=== PATIENT | male | born 1985 | race Caucasian/White ===

== ENCOUNTER → 2020-06-06 09:44 | Outpatient (CLI) | payer OTHER, SELFPAY | LOC: UTC.OUT 09:46 → COVID.OUT 09:59 | PROVIDERS: PCP Internal Medicine Adolescent Medicine; Visit Provider Internal Medicine Adolescent Medicine | DX: Z20.828 Contact with and (suspected) exposure to other viral communicable diseases (principal) | CPT/HCPCS: U0003 ==

== ENCOUNTER → 2020-06-07 11:19 | Outpatient (CLI) | payer OTHER, SELFPAY | PROVIDERS: Visit Provider Internal Medicine Adolescent Medicine | DX: Z03.818 Encounter for observation for suspected exposure to other biological agents ruled out (principal) | CPT/HCPCS: U0003 ==

== ENCOUNTER 2021-01-11 20:24 | Emergency (ER) | payer OTHER, SELFPAY ==
[2021-01-11 20:27] VITALS: BP 147/99; PULSE 113; RESP 14; TEMP 36.6; O2SAT 100; BMI 25.1
[2021-01-11 20:41] VITALS: BP 139/96; PULSE 111; RESP 18; TEMP 36.6
--- NOTE | 2021-01-11 20:50 | HMH.EDUTC ---
[facility] [place] Disposition Clinical Impression: Viral syndrome, Exposure to COVID-19 virus Sinusitis Qualifiers: Sinusitis location: unspecified location Chronicity: acute Recurrence: non-recurrent Qualified Code(s): J01.90 - Acute sinusitis, unspecified Disposition: Home, Self-Care Condition on Discharge: Good Instructions: DI for Sinusitis, Preventing the Spread of Coronavirus Discharge Instructions Additional Instructions: Drink plenty of fluids. Take tylenol for pain or fever. Return if you begin to have difficulty breathing. Follow up with your regular doctor. GO TO THE ER FOR ANY WORSENING SYMPTOMS Prescriptions: Benzonatate [Tessalon Perle 100mg Cap] 100 mg PO TIDP PRN #30 cap PRN Reason: Cough Transmission Status: Received by [facility] Azithromycin [Z-Eagle 250mg Tab*] 250 mg PO UD DOSE PK #6 tab Transmission Status: Received by [facility] Referrals: Kali Quick MD [Primary Care Provider] - Time of Disposition: 20:52 Medical Decision Making - Medical Records Medical records reviewed: No: I reviewed the patient's medical records. - Nikhil Inquiry Pt receiving controlled substance: No Vital Signs: 01/11/21 20:27 01/11/21 20:41 Temperature 98 F 98 F Temperature Source Tympanic Pulse Rate 111 H Pulse Rate [Right] 113 H Respiratory Rate 14 18 Blood Pressure 139/96 H Blood Pressure [Right Arm] 147/99 H Blood Pressure Mean [Right Arm] 115 Blood Pressure Source [Right Arm] Automatic Cuff Blood Pressure Position [Right Arm] Sitting 02 Sat by Pulse Oximetry 100 Oxygen Delivery Method Room Air Orders (Tests/Meds): ORDERS Category Date Time Status Covid-19 Nasal PCR ([facility]) Routine Lab 01/11/21 20:37 Received [facility] [place] HPI - General Stated complaint: covid test Time Seen by Provider: 01/11/21 20:50 Mode of Arrival: Ambulatory Source of Information: Patient Limitations: No Limitations Description of Symptoms (Recalled from Triage Doc. by RN): low grade fever, loss of taste and smell, nasal drainage, cough and sore throat. HEENT Symptoms (Recalled from RN notes): Yes (sore throat and loss of taste/smell) Resp Symptoms (Recalled from RN notes): Yes (cough) Skin Symptoms (Recalled from RN notes): No MS Symptoms (Recalled from RN notes): No Functional Status (Recalled from RN notes): na - History of Present Illness Provider Complaint: He reports that for the past 2 days he has had a cough, sinus congestion, sore throat and body aches. He denies any known exposure to covid. - Related Data Previous Rx's Medication Instructions Recorded Azithromycin [Z-Eagle 250mg Tab*] 250 mg PO UD DOSE PK #6 tab 01/11/21 Benzonatate [Tessalon Perle 100mg 100 mg PO TIDP PRN #30 cap 01/11/21 Cap] Allergies Allergy/AdvReac Type Severity Reaction Status Date / Time Penicillins [PENICILLINS] Allergy Unknown Verified 01/11/21 20:36 - Worker's Comp Is this a Worker's Comp case?: No [facility] History - Hepatitis A Screen Drug use history?: No High risk sexual behaviors?: No History of sexually transmitted infection?: No Currently employed?: No Childcare worker?: No Do you have indoor plumbing?: Yes Do you have electricity?: Yes Attestation statement:: This patient has been screened for Hepatitis A risk factors. I have reviewed the patient's past medical history: Yes - Social History Smoking Status: Never smoker Alcohol Intake: never Occupational Status: employed ROS Obtained: Yes All systems reviewed & no additional complaints - Constitutional Constitutional: Reports system reviewed and no additional complaints, except as docu - Eyes Eyes: Reports system reviewed and no additional complaints, except as docu - ENT Ears, Nose, Mouth, and Throat: Reports system reviewed and no additional complaints, except as docu - Cardiovascular Cardiovascular: Reports system reviewed and no additional complaints, except as docu - Respiratory Respiratory
== END 2021-01-11 20:57 | disposition home or self-care (01) ==
PROVIDERS: Emergency Provider Nurse Practitioner Family; PCP Internal Medicine Adolescent Medicine
DX: Z20.822 Contact with and (suspected) exposure to COVID-19 (principal); B34.9 Viral infection, unspecified; J01.90 Acute sinusitis, unspecified; Z88.0 Allergy status to penicillin
CPT/HCPCS: 99202; G0463; U0003

== ENCOUNTER → 2021-04-22 15:59 | Outpatient (CLI) | payer OTHER, SELFPAY ==
[2021-04-22 16:02] LABS: Adenovirus F 40/41, stool Not Detected (NotDetected); Astrovirus Not Detected (NotDetected); Clostridium Difficile A/B, PCR Not Detected (NotDetected); Cryptosporidium Not Detected (NotDetected); Cyclospora Cayetanesis Not Detected (NotDetected); Entamoeba histolytica Not Detected (NotDetected); Enteroaggregative E coli Not Detected (NotDetected); Enteropathogenic E coli Not Detected (NotDetected); Enterotoxigenic E coli Not Detected (NotDetected); Giardia lamblia Not Detected (NotDetected); Norovirus Not Detected (NotDetected); Plesimonas Shigalloides, PCR Not Detected (NotDetected); Rotavirus A Not Detected (NotDetected); Salmonella, PCR Not Detected (NotDetected); Sapovirus Not Detected (NotDetected); Shiga-like toxin E coli Not Detected (NotDetected); Shigella Enterovasive E coli Not Detected (NotDetected); Vibrio Cholerae Not Detected (NotDetected); Vibrio, PCR Not Detected (NotDetected); Yersinia Entercolitica, PCR Not Detected (NotDetected)
[2021-04-23 09:07] LABS: Campylobacter Detected (NotDetected)
== END ==
PROVIDERS: Visit Provider Internal Medicine Adolescent Medicine
DX: R19.7 Diarrhea, unspecified (principal); A04.5 Campylobacter enteritis
CPT/HCPCS: 87507

== ENCOUNTER → 2021-07-04 12:20 | Outpatient (CLI) | payer OTHER, SELFPAY ==
--- NOTE | 2021-07-04 | CA_ITS ---
APPROVED REPORT Exam: Exercise Treadmill Technologist: Emerita Lechuga Ht: 5 ft 10 in Wt: 175 lbs BSA: 1.97 m2 HR: 78 bpm BP: 135/87 mmHg Indications: Abnormal EKG Stress Test Details Test: Bao HR Resting HR: 89 bpm Max Heart Rate (APMHR): 182.966563 bpm Max HR Achieved: 159 bpm Target HR (85% APMHR): 154.024235 bpm % of APMHR: 87.36 Recovery HR: 106 bpm BP Resting BP: 135.0/87.0 mmHg Max BP: 172.0/80.0 mmHg Recovery BP: 129.0/91.0 mmHg ECG Resting ECG: Normal sinus rhythm Clinical Exercise duration: 09:00 min Highest Stage Achieved: Exercise capacity: 10.1 METs Stress ECG Conclusion Patient exercised 9:00 on Bao Protocol. Test stopped due to leg fatigue, shortness of air. Symptoms: Post test (in recovery) chest pressure Arrhythmias/Ectopy: None ST-T Changes: Normal ST response to exercise. Conclusion: Normal stress ECGs with chest pain in recovery. Myoview images reported separately. Test Summary REST . . . . . . . Sitting REST . . . . . . . Standing REST 03:20 0.0 0.0 89 . 135/ 87 . . Stage 1 01:00 10.0 1.7 119 . . . . Stage 1 02:00 10.0 1.7 122 . . . . Stage 1 03:00 10.0 1.7 123 . 154/ 86 . . Stage 2 01:00 12.0 2.5 133 . . . . Stage 2 02:00 12.0 2.5 136 . . . . Stage 2 03:00 12.0 2.5 136 . 172/ 80 . . Stage 3 01:00 14.0 3.4 149 . . . . Stage 3 . . . . . . . Myoview Injected Stage 3 02:00 14.0 3.4 155 . . . . Stage 3 03:00 14.0 3.4 158 . . . Stop exercise at 09:00 RECOVERY 01:00 0.0 0.0 140 . 140/ 84 . . RECOVERY 02:00 0.0 0.0 123 . 140/ 84 . . RECOVERY 03:00 0.0 0.0 112 . 146/ 85 . . RECOVERY . . . . . . . chest pressure RECOVERY 04:00 0.0 0.0 114 . 146/ 85 . . RECOVERY 05:00 0.0 0.0 106 . 129/ 91 . . RECOVERY 05:38 0.0 0.0 105 . 129/ 91 . . Electronically signed by : Gibson Do MD 07/04/2021 15:59:11
--- NOTE | 2021-07-04 12:25 | NM_ITS ---
APPROVED REPORT Exam: Nuclear Stress Test Indication: TOB USE, FM HX., C.P., SOB, ABN EKG Patient Location: Outpatient NH Tech:HIEU Junior RT(R)(N) Ht: 5 ft 10 in Wt: 175 lbs HR: 78 bpm BP: 135/87 mmHg BSA: 1.97 m2 BMI: 25.1 History: TOB USE, FM HX., C.P., SOB, ABN EKG Procedure: Patient exercised on Bao protocol 9:00 minutes and sec, resting heart rate 78 bpm, resting blood pressure 135/87 mmHg, with exercise maximum heart rate achived was 159 bpm which is 87 % of the maximum predicted heart rate and blood pressure was 172/80 mmHg. Patient denied any complaint of chest pain. Patient has Good exercise capacity, achieved 10.1 METs of workload on treadmill, the blood pressure response to exercise was Adequate. Electrocardiogram Resting electrocardiogram shows sinus rhythm, with exercise there is less than 1.[address] segment depression noted from the baseline EKG. The EKG portion of the exercise Myoview is negative for ischemia. Cardiac Stress and Resting SPECT Images: Cardiac Stress and Resting SPECT images were obtained using technetium 99m Myoview 32.9 mCi stress and 10.42 mCi at rest. Gated SPECT for analysis of segmental wall motion and calculation of the ejection fraction also done. Prone images were also obtained. Cardiac stress and rest SPECT images show uniform myocardial activity without segmental perfusion abnormality, computer derived ejection fraction is 53% with no regional wall motion abnormality, right ventricle is normal size and contractility. Conclusion: 1. The EKG portion of the exercise Myoview is negative for ischemia, patient has good exercise capacity achieved 10.1 METs of workload on treadmill, the blood pressure response to exercise was adequate, there was no exercise-induced chest discomfort. 2. No scintigraphic evidence of reversible ischemia seen, computer derived ejection fraction is 53% with no regional wall motion abnormality, right ventricle is normal size and contractility. 3. Normal exercise Myoview study. Electronically signed by : Gibson Do MD 07/04/2021 16:15:32
== END ==
PROVIDERS: PCP Internal Medicine Adolescent Medicine; Visit Provider Internal Medicine Adolescent Medicine
DX: I20.9 Angina pectoris, unspecified (principal); R94.31 Abnormal electrocardiogram [ECG] [EKG]
CPT/HCPCS: 78452; 93017; A9502

== ENCOUNTER → 2021-07-08 10:56 | Outpatient (CLI) | payer OTHER, SELFPAY ==
[2021-07-08 12:14] LABS: Coronavirus 19 IgG Antibody Negative (Negative); Coronavirus 19 IgM Antibody Negative (Negative)
== END ==
PROVIDERS: Visit Provider Internal Medicine Adolescent Medicine
DX: Z20.822 Contact with and (suspected) exposure to COVID-19 (principal)
CPT/HCPCS: 86328

== ENCOUNTER 2021-10-12 13:18 | Emergency (ER) | payer OTHER, SELFPAY ==
[2021-10-12 13:40] VITALS: BP 146/89; PULSE 107; RESP 19; TEMP 37; O2SAT 98; BMI 25.1
[2021-10-12 14:03] LABS: UTC Influenza A Antigen Negative (Negative)
[2021-10-12 14:04] LABS: UTC Influenza B Antigen Negative (Negative)
--- NOTE | 2021-10-12 14:16 | HMH.EDUTC ---
[facility] [place] Disposition Clinical Impression: Exposure to COVID-19 virus Disposition: Home, Self-Care Condition on Discharge: Good Instructions: Preventing the Spread of Coronavirus Discharge Instructions, DI for COVID-19 (Suspected or Confirmed ) Additional Instructions: covid swab was sent to lab, call later today for results. self isolate until test results are known to be negative No sign of a bacterial infection. Likely viral. Viruses can take 7-14 days to run their course. Nasal saline and bulb syringe or nose Brandy to remove nasal drainage to help with nasal congestion. Hard to eat, drink, sleep with nasal congestion so important to keep this cleaned out. Monitor temp. Tylenol or Motrin as needed for pain or fever Encourage fluids, water, Gatorade, Powerade, Pedialyte if infant/toddler/child Warm salt water gargles Warm fluids Sore throat lozenges Sleep elevated Humidifier/vaporizer Follow-up immediately for new or worsening symptoms or no noticeable improvement over the next 48-72 hours. Referrals: Kali Quick MD [Primary Care Provider] - Time of Disposition: 14:22 Medical Decision Making - Nikhil Inquiry Pt receiving controlled substance: No Vital Signs: 10/12/21 13:40 Temperature 98.6 F Temperature Source Oral Pulse Rate [Right Brachial] 107 H Respiratory Rate 19 Blood Pressure [Right Arm] 146/89 H Blood Pressure Mean [Right Arm] 108 Blood Pressure Source [Right Arm] Automatic Cuff Blood Pressure Position [Right Arm] Sitting 02 Sat by Pulse Oximetry 98 Oxygen Delivery Method Room Air - Lab Data Lab Results 10/12/21 13:43: Influenza Type A Ag Negative, Influenza Type B Ag Negative Orders (Tests/Meds): ORDERS Category Date Time Status Covid-19 Nasal PCR ([facility]) Routine Lab 10/12/21 13:43 Ordered [facility] [place] HPI - General Chief complaint: [facility] Stated complaint: cough, congestion, body aches, runny nose Time Seen by Provider: 10/12/21 14:16 Mode of Arrival: Ambulatory Source of Information: Patient Limitations: No Limitations Description of Symptoms (Recalled from Triage Doc. by RN): PATIENT C/O BODY ACHES AND CHILLS SINCE YESTERDAY. RECENTLY EXPOSED TO COVID AND FLU HEENT Symptoms (Recalled from RN notes): No Resp Symptoms (Recalled from RN notes): No Skin Symptoms (Recalled from RN notes): No MS Symptoms (Recalled from RN notes): No Functional Status (Recalled from RN notes): WNL - History of Present Illness Provider Complaint: 36 yr old female presents for chills and body aches. pt recently exposed to covid and flu, - Related Data Previous Rx's Medication Instructions Recorded Azithromycin [Z-Eagle 250mg Tab*] 250 mg PO UD DOSE PK #6 tab 01/11/21 Benzonatate [Tessalon Perle 100mg 100 mg PO TIDP PRN #30 cap 01/11/21 Cap] Allergies Allergy/AdvReac Type Severity Reaction Status Date / Time Penicillins [PENICILLINS] Allergy Unknown Verified 01/11/21 20:36 - Worker's Comp Is this a Worker's Comp case?: No [facility] History - Hepatitis A Screen Drug use history?: No High risk sexual behaviors?: No History of sexually transmitted infection?: No Currently employed?: No Childcare worker?: No Do you have indoor plumbing?: Yes Do you have electricity?: Yes Attestation statement:: This patient has been screened for Hepatitis A risk factors. I have reviewed the patient's past medical history: Yes - Social History Smoking Status: Never smoker Alcohol Intake: never Occupational Status: employed ROS Obtained: Yes Systems reviewed as appropriate & no additional complaints - Constitutional Constitutional: Reports system reviewed and no additional complaints, except as docu, Reports body ache, Reports chills, Denies fever(s) - Eyes Eyes: Reports system reviewed and no additional complaints, except as docu, Denies blurry vision - ENT Ears, Nose, Mouth, and Throat: Reports system reviewed and no additional complaints, except as docu, Denies blee
[2021-10-12 14:32] VITALS: BP 146/89; PULSE 107; RESP 19; TEMP 37; O2SAT 98
== END 2021-10-12 14:35 | disposition home or self-care (01) ==
PROVIDERS: Emergency Provider Nurse Practitioner Family; PCP Internal Medicine Adolescent Medicine
DX: U07.1 COVID-19 (principal); R05.1 Acute cough
CPT/HCPCS: 87804; 99202; C9803; G0463; U0003; U0005

== ENCOUNTER → 2022-01-27 15:00 | Outpatient (CLI) | payer OTHER, SELFPAY ==
--- NOTE | 2022-01-27 15:09 | XR_ITS ---
FINAL REPORT CLINICAL HISTORY: HEMOPTYSIS, cough, hx smoker COMPARISON: March 19, 2016 FINDINGS: Two views of the chest were obtained. The heart size and pulmonary vascularity are within normal limits. The mediastinum is normal. No acute pulmonary abnormality is identified. There is no pneumothorax. The bony thorax is intact. IMPRESSION: No active cardiopulmonary disease. Reviewed, Interpreted and Dictated by Mik Lakhani III, MD Transcribed by Hilton Marquez Authenticated by Mik Lakhani III, MD on 01/27/2022 04:02:01 PM [facility]
== END ==
PROVIDERS: PCP Internal Medicine Adolescent Medicine; Visit Provider Internal Medicine Adolescent Medicine
DX: R04.2 Hemoptysis (principal)
CPT/HCPCS: 71046

== ENCOUNTER → 2023-02-23 16:16 | Outpatient (CLI) | payer OTHER, SELFPAY ==
--- NOTE | 2023-02-23 16:22 | XR_ITS ---
PROCEDURE INFORMATION: Exam: XR Right Wrist Exam date and time: 02/23/2023 4:37 PM Age: 37 years old Clinical indication: Pain; Wrist; Right; Patient HX: Fall TECHNIQUE: Imaging protocol: Radiologic exam of the right wrist. Views: 3 or more views. COMPARISON: No relevant prior studies available. FINDINGS: Bones/joints: Normal. No fracture or dislocation identified. Soft tissues: Normal. IMPRESSION: No acute findings.
--- NOTE | 2023-02-23 16:23 | XR_ITS ---
PROCEDURE INFORMATION: Exam: XR Right Forearm Exam date and time: 02/23/2023 4:37 PM Age: 37 years old Clinical indication: Pain; Lower or forearm; Right; Patient HX: Fall TECHNIQUE: Imaging protocol: Radiologic exam of the right forearm. Views: 2 views. COMPARISON: No relevant prior studies available. FINDINGS: Bones/joints: Normal. No fracture or dislocation identified. Soft tissues: Normal. IMPRESSION: No acute findings.
== END ==
PROVIDERS: PCP Internal Medicine Adolescent Medicine; Visit Provider Nurse Practitioner Family
DX: M25.531 Pain in right wrist (principal); M79.631 Pain in right forearm
CPT/HCPCS: 73090; 73110

== ENCOUNTER 2024-01-07 13:45 | Emergency (ER) | payer OTHER, SELFPAY ==
[2024-01-07 13:47] VITALS: BP 159/108; PULSE 103; RESP 20; TEMP 36.8; O2SAT 100; BMI 25.0
[2024-01-07 14:00] VITALS: BP 144/101; PULSE 105; O2SAT 100
--- NOTE | 2024-01-07 14:20 | ED_ITS ---
<Statement entered by Umu Beltran MD - 01/07/24 15:25> I was consulted by the ADRIANO, and we discussed the complexity of the problems being addressed. I approved the treatment and management plan for this patient's care in the emergency department, thus performing a substantive portion of the medical decision making. Umu Beltran MD, DARLIN, FACEP Discharge Plan Disposition Patient Disposition: Home, Self-Care Condition: Good Prescriptions Prescriptions: New cephalexin 500 mg capsule 500 mg PO BID 7 Days Qty: 14 0RF No Action losartan 50 mg tablet 50 mg PO diclofenac sodium 75 mg tablet,delayed release (DR/EC) PO Referrals Follow up/Referrals: Kali Quick MD [Primary Care Provider] - See instructions Activity Restrictions/Add. Instructions Additional Instructions/Restrictions: Keep sutures covered with a dry dressing. Keep bandage in place for 24 hours. Then may wash as normal with soap and water. Do not cover with an occlusive dressing. Return to the ER for redness increasing pain drainage as needed. Suture removal in 7 to 10 days Clinical Impressions Clinical Impression: Laceration Stand Alone Forms Stand Alone Forms: Work/School Release Instructions Patient Instructions: DI for Laceration Repair Discharge ED Provider: Umu Beltran General Adult HPI General Chief complaint: Wound/Laceration Stated complaint: AO@[id number], lac on Lt arm Time Seen by Provider: 01/07/24 14:07 Mode of Arrival: Family Vehicle Source of Information: Patient and Spouse Limitations: No Limitations Description of Symptoms (Recalled from ER Triage Doc. by RN): Pt presents to ER after a lens edge grinder machine kicked back and cut the side of his left wrist. States he has held pressure to the wound with 2 sets of paper-towel in route. Bleeding controlled at this time. Pt reports numbness to left little finger. 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 He is able to move fingers wnl, however he feels not completely numb. He is not UTD on Tetanus vaccine. This occured at work just prior to arrival. History of Present Illness HPI narrative: Patient was using a lens edge grinder machine to grind clean metal and it slipped and striking his ulnar aspect of his left distal extremity at the wrist but proximal to the joint. 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 Related Data Home Medications Medication Instructions Recorded Confirmed diclofenac sodium 75 mg mg PO 03/13/23 04/10/23 tablet,delayed release losartan 50 mg tablet 50 mg PO 03/13/23 04/10/23 Previous Rx's Medication Instructions Recorded cephalexin 500 mg capsule 500 mg PO BID 7 days #14 caps 01/07/24 Allergies Allergy/AdvReac Type Severity Reaction Status Date / Time Penicillins [PENICILLINS] Allergy Unknown Verified 04/10/23 10:[address] [facility] Disclaimer: The information contained in this section may have been updated after the patient was seen, as this information can be updated by other users. Medical History Hypertension Social History Smoking Status: Former smoker alcohol intake: never current occupational status: employed Travel in the last 8 weeks: None ROS Obtained: Yes Systems reviewed as appropriate & no additional complaints except as documented Physical Exam General General appearance: alert and in no apparent distress Head Head exam: atraumatic and normal inspection Eye Eye exam: Present normal appearance, PERRL and EOMI ENT ENT exam: Present normal exam, normal oropharynx and mucous membranes moist Neck Neck exam: Present normal inspection and full ROM Chest Chest inspection: Present normal inspection and symmetric chest wall rise Respiratory Respiratory exam: Present normal lung sounds bilaterally and accessory muscle use Cardiovascular Cardiovascular exam: Present regular rate and normal rhythm Abdominal Exam Abdominal exam: Present soft; Absent tenderness Neurological Exam Neurological exam: Present alert and oriented X3 Psychiatric Psychiatric exam: Present normal affect Other Other exam information: Patient has suffered a 4-1/2 cm laceration in a semicircular fashion to the ulnar aspect of his left distal forearm proximal to the wrist joint. The wound appears to be clean although it has some superficial metal debris at the wound edges. Patient is neurovascularly intact distally from the wound and has no motor deficits or strength deficits. Flexion extension and abduction adduction testing is intact. Patient does have loss of sensation of the superficial skin on the ulnar aspect of the fifth finger but no other deficits found. Prior to wound closure but after adequate superficial anesthesia wound explored and appears to remain superficial with no bony fragments or debris deep into the joint. Brain and skin exams pink warm and dry Medical Decision Making Medical Records Medical records reviewed: Yes I reviewed the patient's medical records. Nikhil Inquiry Pt receiving controlled substance: No Vital Signs: 01/07/24 13:47 01/07/24 14:00 Temperature 98.3 F Temperature Source Oral Pulse Rate 105 H Pulse Rate [Right] 103 H Respiratory Rate 20 Blood Pressure 144/101 H Blood Pressure [Right Arm] 159/108 H Blood Pressure Mean [Right Arm] 125 Blood Pressure Source [Right Arm] Automatic Cuff 02 Sat by Pulse Oximetry 100 100 Oxygen Delivery Method Room Air Lab Data Lab results reviewed: Yes I reviewed the patient's lab results. Orders (Tests/Meds): ED MEDICATIONS Discontinued Medications Generic Name Dose Route Start Last Admin Trade Name Francisco J PRN Reason Stop Dose Admin Lidocaine/Epinephrine 20 ml 01/07/24 14:22 01/07/24 14:46 Lidocaine 1% W/Epi 1:100,000 20ml Vial SQ 01/07/24 14:23 1 dose ONCE ONE Administration Tetanus/Reduced Diphtheria/Acell Pertussis 0.5 ml 01/07/24 14:22 Tet/Diphth/Pert-Adult 0.5ml Syringe IM 01/07/24 14:23 .ONCE ONE ORDERS Category Date Time Status Wrist XR left minimum 3 views [XR wrist LT min 3V] Stat Exams 01/07/24 14:29 Ordered Medical Decision Narrative: In summary patient is a 38-year-old male who presents to the emergency department for evaluation of laceration at the left wrist. Patient is hemodynamically stable upon arrival, and afebrile. Physical exam shows a 4-1/2 cm laceration to the ulnar aspect of the left wrist proximal to the joint. Differential diagnosis includes superficial laceration versus open fracture versus tendinous injury versus vascular injury versus neurologic injury. Initial workup will be conducted with plain film x-ray. Initial interventions include Tylenol Toradol Initial workup reviewed by me [hematologic labs are remarkable for... Imaging remarkable for... Urinalysis remarkable for]. Upon repeat evaluation patient is hemostatic and is appropriate for discharge at this time with wound care instructions given both verbally and written. Patient given a prescription for Keflex for 5 days. Patient given instructions to return the emergency department for increasing redness swelling or drainage. 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 Again patient and verbalized understanding and agreement. Procedures Laceration Laceration 1: Site: upper extremity Side (If applicable): left Size (cm): 4.5 Description: other (Semicircular) Depth: simple, single layer Local Anesthetic: lidocaine 1% and with epi Amount of anesthesia used (mL): 20 Pre-repair: wound explored, irrigated extensively and deep structures intact Skin layer closed with: nylon Size (cm): 3-0 Number of sutures: 7 Technique: simple, interrupted Critical Care Critical Care Time Critical Care Time: No
--- NOTE | 2024-01-07 14:29 | XR_ITS ---
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 There is no acute fracture or dislocation. The joint spaces appear normal. There is a cyst in the lunate. No soft tissue abnormality is identified. IMPRESSION: No acute process. Reviewed, Interpreted and Dictated by Mik Lakhani III, MD Transcribed by Ramonita Minaya Authenticated and . [facility]
[2024-01-07] MEDS: LIDOCAINE 1% W/EPI 1:100,000 20ML VIAL 20 ML SQ (14:46)
--- NOTE | 2024-01-07 14:50 | PC.NURSE ---
DON AT [facility] DOING STITCHES
[2024-01-07] MEDS: TET/DIPHTH/PERT-ADULT 0.5ML SYRINGE 0.5 ML IM (15:29)
[2024-01-07 15:41] VITALS: BP 144/100; PULSE 105; RESP 15; TEMP 36.7
== END 2024-01-07 15:42 | disposition home or self-care (01) ==
PROVIDERS: Emergency Provider Student in an Organized Health Care Education/Training Program; PCP Internal Medicine Adolescent Medicine
DX: S51.812A Laceration without foreign body of left forearm, initial encounter (principal); W31.1XXA Contact with metalworking machines, initial encounter; I10 Essential (primary) hypertension; Z87.891 Personal history of nicotine dependence; Z23 Encounter for immunization
CPT/HCPCS: 12002; 73110; 90471; 90715; 99283

== ENCOUNTER 2024-04-08 06:23 | Day surgery (SDC) | payer BC, SELFPAY ==
[2024-04-08 06:59] VITALS: BMI 21.5
[2024-04-08 07:03] VITALS: BP 128/89; PULSE 66; RESP 18; TEMP 36.1; O2SAT 100
[2024-04-08] MEDS: LACTATED RINGERS 1000ML 1,000 ML 25 ML IV (07:12)
[2024-04-08 07:20] VITALS: O2SAT 99
--- NOTE | 2024-04-08 07:41 | P.PNANES_ITS ---
[facility] Disclaimer: The information contained in this section may have been updated after the patient was seen, as this information can be updated by other users. Medical History Hypertension Family History (Updated 04/08/24 @ 06:57 by Ruth Ann Mesa RN) Other No significant family history Social History (Updated 04/08/24 @ 06:58 by Ruth Ann Mesa RN) Smoking Status: Former smoker alcohol intake: never substance use type: denies use current occupational status: employed Travel in the last 8 weeks: None caffeine: Yes [facility] Anesthesia Checklist Patient Identification Patient Identification: Arm Band Structural Data Admitted From: Home Planned Operative Procedure/s: colonoscopy Consent for Planned Operative Procedure(s) Verified: Yes Verified Documents: Surgical Consent and History and Physical NPO Status Verified Time NPO: 00:00 Additional verifications Anesthesia Reactions: No Airway Assessment Mallampati Score:: Class I C-Spine Mobility Assessed: Yes TMJ Mobility Assessed: Yes Dentition: Good Dentition Neurological Assessment Level of Consciousness: Awake, Alert and Appropriate Anesthesia Plan Anesthesia Risk discussed: Yes Anesthesia Plan: Verified ASA Class: II Anesthesia Type: MAC
--- NOTE | 2024-04-08 07:46 | P.PCN_ITS ---
Procedure: Date: 04/08/24 Patient Date of :: 1985 Procedure Performed:: Total colonoscopy to terminal ileum with polypectomy by biopsy forceps Indications:: Patient is a 39-year-old male who presents for initial screening colonoscopy. He does have family history of colon cancer in his paternal grandfather and possibly relative on mother side of the family. . Performing Provider:: Mik Blackwell MD Referring Provider:: Kali Quick MD Sedation:: MAC sedation Procedure:: Patient history was obtained and appropriate physical examination was performed. Patient's medications and allergies were reviewed. Informed consent was obtained after explaining the benefits, alternatives, and risks of the procedure including, but not limited to, bleeding, perforation, missed lesions, and adverse reaction to anesthesia medications. Patient was transported to endoscopy procedure room. Patient was connected to monitoring devices. Throughout the procedure the patient's blood pressure, pulse, and oxygen saturations were monitored continuously. Patient identification and planned procedure were verified by the staff. Patient was positioned in lateral decubitus position. Digital anorectal exam was performed. Variable stiffness Olympus colonoscope was inserted and advanced under direct visualization to the cecum. Adequacy of the colonic preparation was noted. The colonoscope was advanced a short distance into the terminal ileum. The colonoscope was then slowly withdrawn while carefully examining the color, texture, anatomy, and integrity of the mucosoa circumferentially. Within the rectum retroflexion was performed. Colonoscope was then withdrawn. Impression: Colonic preparation was excellent. There was good visualization. In the descending colon there was some patchy erythema consistent with mild colitis and a couple of biopsies were obtained using cold biopsy forceps. At the rectosigmoid region there was a hyperplastic appearing polyp removed with cold biopsy forceps. Retroflexion revealed no evidence of any pathologic internal hemorrhoids. . Findings:: Nonspecific inflammation of descending colon consistent with mild colitis Hyperplastic appearing rectosigmoid polyp . Recommendations:: Follow-up colonoscopy pending pathology. Likely 4 or 5 years given family his tory. . Complications:: None immediately apparent Estimated blood obtained (mL): 2 Colonoscopy Component Colonoscopy Component Was a colonoscopy performed during today's procedure?: Yes Recommended follow up colonoscopy of at least 10 years?: No If no, follow up colonoscopy recommended in ___ years?: 4-5 Reason for not recommending >/= 10 yr follow-up interval?: See above
[2024-04-08 07:59] VITALS: BP 104/57; PULSE 78; RESP 16; O2SAT 97
[2024-04-08 08:10] VITALS: BP 128/71; PULSE 81; RESP 18; O2SAT 98
[2024-04-08 08:17] VITALS: BP 117/75; PULSE 84; RESP 16; O2SAT 99
== END 2024-04-08 08:22 | disposition home or self-care (01) ==
PROVIDERS: PCP Nurse Practitioner Family; Visit Provider Surgery
PROC: 0DJD8ZZ Inspection of Lower Intestinal Tract, Via Natural or Artificial Opening Endoscopic (ICD-10-PCS; CPT 45380; principal; 2024-04-08 07:30)
DX: Z12.11 Encounter for screening for malignant neoplasm of colon (principal); Z80.0 Family history of malignant neoplasm of digestive organs; K63.5 Polyp of colon; K52.9 Noninfective gastroenteritis and colitis, unspecified
CPT/HCPCS: 45380; J2704; J7120

== ENCOUNTER 2025-06-30 21:24 | Emergency (ER) | payer BC, OTHER, SELFPAY ==
--- OUTSIDE RECORDS SUMMARY | 2025-06-30 21:54 | XMS_ITS | Clinical Summary ---
Author Organization [facility] Address [address] [place] [address] Care Team Providers Care Embedded Case Manager Name Role Phone Kali Quick MD Primary Care Provider + [phone] Allergies Active Allergy Reactions Criticality Noted Date Comments Penicillins 07/27/2017 Medications levocetirizine (XYZAL) 5 MG tablet Take 5 mg by mouth Every Evening. Active fluticasone (FLONASE) 50 MCG/ACT nasal spray 2 sprays into each nostril Daily. Active oxyCODONE-aceta minophen (PERCOCET) 10-325 MG per tablet Take 1 tablet by mouth Every 6 (Six) Hours As Needed for Moderate Pain . Active nabumetone (RELAFEN) 750 MG tablet Take 1 tablet by mouth 2 (Two) Times a Day. 60 tablet 07/28/2017 Active Active Problems Problem Noted Date Diagnosed Date Degenerative disc disease, lumbar 07/28/2017 Overview (07/28/2017): L4/5, L5/S1 Bulge of lumbar disc without myelopathy 07/28/20 17 Overview (07/28/2017): L4/5, L5/S1 Family History Medical History Relation Name Comments Heart disease Father Relation Name Status Comments Father Social History Tobacco Use Types Packs/Day Years Used Date Smoking Tobacco: Former Cigarettes Smokeless Tobacco: Current Snuff Alcohol Use Standard Drinks/Week Comments No 0 (1 standard drink = 0.6 oz pur e alcohol) Abuse Screen Answer Date Recorded Unsafe at Home or Work/School Not on file Feels Threatened by Someone? Not on file 09/2023 Does Anyone Keep You from Co ntacting Others or Doint Things Outside the Home? Not on file 08/12/2023 Physical Sign of Abuse Present Not on file 1 Housing Stability Answer Date Recorded Current Living Arrangements Not on file 08/02 Potentially Unsafe Housing Conditions Not on laureen e 08/12/2023 Family and Community Support Answer Stephane e Recorded Help with Day-to-Day Activities Not on file 08/12/2023 Lonely or Isolated Not on file 08/12/2023 Employment Answer Date Recorded Do you want help finding or keeping work or a arias b? Not on file 08/12/2023 Disabilities Answer Date Recorded Concentrating, Remembering, or Making Decisions Difficulty Not on file 08/12/2023 Doing Errands Independently Difficulty Not on fi le 08/12/2023 Education Answer Date Recorded Help with school or training? Not on file Preferred Language Not on file 08/12/2023 Sex and Gender Information Value Date Recorded Sex Assigned at Not on file Legal Sex Male 12:48 PM EDT Gender Identity Not on file Sexual Orientation Not on file Last Filed Vital Signs Vital Sign Reading Time Taken Comments Blood Pressure 130/82 07/28/2017 11:07 AM EDT Pulse - - Temperature 36.8 C (98.2 F) 07/28/2017 11:07 AM EDT Respiratory Rate - - Oxygen Saturation - - Inhaled Oxygen Concentration - - Weight 78 kg (172 lb) 07/28/2017 11:07 AM EDT Height 177.8 cm (5' 10 ) 07/28/2017 11:07 AM EDT Body Mass Index 24.68 07/28/2017 11:07 AM EDT Plan of Treatment Health Maintenance Due Date Last Done Comments TDAP/TD VACCINES (1 - Tdap) 2002 ANNUAL PHYSICAL 07/27/2017 HEPATITIS C SCREENING 07/27/2017 COVID-19 Vaccine (2023-2 5 season) 2024 INFLUENZA VACCINE 08/02/2025 Pneumococcal Vaccine 0-49 Aged Out No longer eligible based on patient's age to complete this topic Insurance [facility] Care Teams Embedded Case Manager Relationship Specialty Start Date End Date Kali Quick MD [address] [facility] [address] [place] [id number] PCP - General Adolescent Medicine 07/24/17
[2025-06-30 21:55] VITALS: BP 124/97; PULSE 99; RESP 20; TEMP 37.2; O2SAT 98; BMI 25.8
[2025-06-30 22:02] VITALS: BP 129/86; PULSE 92; RESP 16; TEMP 36.8; O2SAT 98
--- NOTE | 2025-06-30 22:04 | XR_ITS ---
PROCEDURE INFORMATION: Exam: XR Right Foot Exam date and time: 06/30/2025 10:21 PM Age: 40 years old Clinical indication: Injury or trauma; Other: Injury with cow; Blunt trauma; Foot; Right TECHNIQUE: Imaging protocol: Radiologic exam of the right foot. Views: 3 or more views. COMPARISON: CR XR ANKLE RT MIN 3V 06/30/2025 10:21 PM FINDINGS: Bones/joints: Normal. No acute fracture identified. Soft tissues: Normal. IMPRESSION: No acute findings.
--- NOTE | 2025-06-30 22:04 | XR_ITS ---
PROCEDURE INFORMATION: Exam: XR Right Ankle Exam date and time: 06/30/2025 10:21 PM Age: 40 years old Clinical indication: Injury or trauma; Other: Injury with cow; Blunt trauma; Ankle; Right TECHNIQUE: Imaging protocol: Radiologic exam of the right ankle. Views: 3 or more views. COMPARISON: CR XR FOOT RT MIN 3V 06/30/2025 10:21 PM FINDINGS: Bones/joints: Normal. No acute fracture identified. Soft tissues: Normal. IMPRESSION: No acute findings.
--- NOTE | 2025-06-30 23:00 | HMH.EDGENADL ---
Discharge Plan Disposition Patient Disposition: Home, Self-Care Prescriptions Prescriptions: New oxycodone 5 mg tablet 5 mg PO Q8H PRN (Reason: pain) Qty: 12 0RF No Action losartan 50 mg tablet 50 mg PO DAILY Referrals Follow up/Referrals: Francisco López DO [Staff Physician, Orthopedics] - See instructions Laura Sprague APRN [Primary Care Provider, Medical] - See instructions Activity Restrictions/Add. Instructions Additional Instructions/Restrictions: Please use the boot and crutches and remain nonweightbearing on your right foot. Please follow-up with our orthopedic surgery team by calling their clinic to schedule an appointment. Please keep the foot elevated as much as possible to help with swelling. Use Tylenol and ibuprofen as needed for pain. Clinical Impressions Clinical Impression: Cuneiform fracture, foot Print Language Print Language: Slovenian Discharge ED Provider: Dwight Ayers General Adult HPI General Chief complaint: PAIN Stated complaint: injured R Foot, swollen Time Seen by Provider: 06/30/25 22:59 Mode of Arrival: Wheelchair Source of Information: Patient Description of Symptoms (Recalled from ER Triage Doc. by RN): Pt presents to ED for R foot injury. 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 Pt rates pain 9/10 when trying to ambulate & 4/10 sitting still. Pt is A&O*4 and family is bedside. History of Present Illness HPI narrative: 40-year-old male without significant past medical history presents for right foot pain. 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 He reports severe pain with ambulation but only minimal pain with sitting still. Happened shortly prior to arrival. No other injuries reported. Related Data Home Medications ?Medication ?Instructions ?Recorded ?Confirmed losartan 50 mg tablet 50 mg PO DAILY 03/13/23 04/08/24 Previous Rx's ?Medication ?Instructions ?Recorded oxycodone 5 mg tablet 5 mg PO Q8H PRN pain #12 tabs 07/01/25 Allergies Allergy/AdvReac Type Severity Reaction Status Date / Time Penicillins (PENICILLINS) Allergy Unknown Verified 04/10/23 10:03 [facility] Disclaimer: The information contained in this section may have been updated after the patient was seen, as this information can be updated by other users. Medical History Hypertension Family History (Updated 04/08/24 @ 06:57 by Ruth Ann Mesa RN) Other No significant family history Social History (Updated 04/08/24 @ 07:43 by Asad Flores CRNA) Smoking Status: Unknown if ever smoked alcohol intake: never substance use type: denies use current occupational status: employed Travel in the last 8 weeks?: None caffeine: Yes Have you lived/traveled outside [place] in past 30 days?: No Contact w/someone who lives/traveled outside US past 30 days?: No Exposure to someone with infectious disease in past 14 days?: No Do you have a fever (greater than 100.4 F or 38 C)?: No Have you tested positive for COVID-19?: No Exposed to someone with COVID-19 in past 14 days?: No Do you have a sore throat?: No Do you have a cough?: No Do you have any weakness?: No Do you have any diarrhea?: No Are you experiencing any unusual bleeding?: No Do you have any muscle aches/pain?: No Do you have any abdominal pain?: No Are you experiencing loss of taste or smell?: No ROS Obtained: Yes All systems reviewed & no additional complaints except as documented Physical Exam General General appearance: alert and in no apparent distress Head Head exam: atraumatic and normocephalic Eye Eye exam: Present normal appearance, PERRL and EOMI ENT ENT exam: Present normal oropharynx and normal external ear exam Neck Neck exam: Present normal inspection and full ROM Chest Chest inspection: Present normal inspection and symmetric chest wall rise; Absent tenderness Respiratory Respiratory exam: Present normal lung sounds bilaterally; Absent respiratory distress Cardiovascular Cardiovascular exam: Present regular rate and normal rhythm Abdominal Exam Abdominal exam: Present soft; Absent distention, tenderness or guarding Extremities Exam Extremities exam: Present normal inspection and other (Tenderness palpation of the right dorsal midfoot); Absent edema or joint swelling Back Exam Back exam: Present normal inspection; Absent tenderness Neurological Exam Neurological exam: Present alert and oriented X3; Absent motor sensory deficit Psychiatric Psychiatric exam: Present normal affect and normal mood Skin Skin exam: Present warm, dry and normal color Lymphatic Lymphatic Findings: no adenopathy Medical Decision Making Medical Records Medical records reviewed: Yes I reviewed the patient's medical records. Screening: Per USPSTF and CDC recommendations, given the prevalence of disease in our region, it is our hospital?s policy to screen for HIV and viral Hepatitis for all patients aged 18 and over and those with ongoing risk factors. Nikhil Inquiry Pt receiving controlled substance: No Nikhil was queried for this patient: No Vital Signs: 06/30/25 21:55 06/30/25 22:02 07/01/25 00:51 Temperature 99.0 F 98.2 F 98.2 F Temperature Source Oral Oral Oral Pulse Rate 92 H 89 Pulse Rate [Left] 99 H Respiratory Rate 20 16 16 Blood Pressure 129/86 138/99 H Blood Pressure [Right Arm] 124/97 H Blood Pressure Mean [Right Arm] 106 Blood Pressure Source Automatic Cuff Blood Pressure Position Sitting Sitting 02 Sat by Pulse Oximetry 98 98 Oxygen Delivery Method Room Air Room Air Room Air Lab Data Lab results reviewed: Yes I reviewed the patient's lab results. Orders (Tests/Meds): ED MEDICATIONS Discontinued Medications Generic Name Dose Route Start Last Admin Trade Name Freq PRN Reason Stop Dose Admin Acetaminophen 1,000 mg 06/30/25 23:05 06/30/25 23:10 Acetaminophen 500mg Tab PO 06/30/25 23:06 1,000 mg ONCE ONE Administration Ibuprofen 800 mg 06/30/25 23:05 06/30/25 23:10 Ibuprofen 400 Mg Tablet PO 06/30/25 23:06 800 mg ONCE ONE Administration Oxycodone HCl 5 mg 07/01/25 00:40 07/01/25 00:47 Oxycodone 5mg Immediate Release Tablet PO 07/01/25 00:41 5 mg ONCE ONE Administration ORDERS Category Date Time Status CT foot RT wo con Stat Cat Scan 06/30/25 23:33 Completed Ankle XR -Right minimum 3 Views [XR ankle RT min 3V] Exams 06/30/25 22:04 Completed Stat Foot XR right minimum 3 views [XR foot RT min 3V] Stat Exams 06/30/25 22:04 Completed Medical Decision Narrative: 40-year-old male without significant past medical history presents for right foot pain. History was obtained via interactive discussion with patient, family, chart review. On arrival, patient is [afebrile, hemodynamically stable, satting appropriately, alert, oriented x4, GCS 15], moving all extremities spontaneously. Full physical exam performed and significant for right midfoot tenderness without significant bruising or swelling Differential includes but is not limited to fracture, dislocation, neurovascular/ligamentous injury. Patient was given Tylenol, ibuprofen for symptomatic management and correction of underlying abnormalities. Workup initiated including radiographs of the foot and ankle. On re-evaluation, patient [remains afebrile, HD stable.] Imaging independently interpreted by me and significant for negative radiographs of the foot and ankle.. See radiology read for full review of final results. Given the severity of the patient's pain, I am concerned for a occult fracture. A CT scan was obtained and on my independent interpretation shows a subtle cuneiform fracture. Radiology reports that they cannot rule out other fractures due to the thickness of the cuts, I considered obtaining a repeat CT scan or MRI, but given patient will be nonweightbearing regardless and I do not have any significant concern for a Lisfranc injury, I do not think we need to get further imaging at this time. Patient was placed in a boot and given crutches and instructed to remain nonweightbearing and to follow-up with Dr. López. Patient was given a dose of oxycodone prior to discharge and was discharged with short prescription for pain control for fracture. Procedures Risk/Benefits of Procedure(s) Were Explained: Yes Critical Care Critical Care Time Critical Care Time: No
[2025-06-30] MEDS: IBUPROFEN 400 MG TABLET 800 MG PO (23:10)
[2025-06-30] MEDS: ACETAMINOPHEN 500MG TAB 1000 MG PO (23:10)
--- NOTE | 2025-06-30 23:33 | CT_ITS ---
PROCEDURE INFORMATION: Exam: CT Right Lower Extremity Without Contrast, Foot Exam date and time: 06/30/2025 11:51 PM Age: 40 years old Clinical indication: Injury or trauma; Other: Cow injury to foot; Other: Right dorsal median midfoot pain, negative xray TECHNIQUE: Imaging protocol: CT of the right lower extremity without contrast was performed. Exam focused on the foot. Radiation optimization: All CT scans at this facility use at least one of these dose optimization techniques: automated exposure control; mA and/or kV adjustment per patient size (includes targeted exams where dose is matched to clinical indication); or iterative reconstruction. COMPARISON: CR XR FOOT RT MIN 3V 06/30/2025 10:21 PM FINDINGS: Bones/joints: A very subtle nondisplaced fracture through the plantar aspect of the lateral cuneiform bone is identified on axial image 35 of series 5 and sagittal image 43 of series 1002 and coronal image 42 of series 1001. No other definite fracture or dislocation seen. Soft tissues: Normal. IMPRESSION: Nondisplaced fracture of the plantar aspect of the lateral cuneiform. No other fracture seen. However, due to the relatively thick sections of these images other subtle fractures might not be detected. For this reason consider redoing the recons at 1 mm thick sections or alternatively MRI of the right foot.
[2025-07-01] MEDS: OXYCODONE 5MG IMMEDIATE RELEASE TABLET 5 MG PO (00:47)
[2025-07-01 00:51] VITALS: BP 138/99; PULSE 89; RESP 16; TEMP 36.8; O2SAT 97
== END 2025-07-01 00:52 | disposition home or self-care (01) ==
PROVIDERS: Emergency Provider Emergency Medicine; PCP Nurse Practitioner Family
DX: S92.221A Displaced fracture of lateral cuneiform of right foot, initial encounter for closed fracture (principal); M79.671 Pain in right foot; X58.XXXA Exposure to other specified factors, initial encounter
CPT/HCPCS: 73610; 73630; 73700; 99282; 99284

== ENCOUNTER 2025-08-01 07:45 | Outpatient (CLI) | payer BC, OTHER, SELFPAY ==
--- OUTSIDE RECORDS SUMMARY | 2025-08-01 07:47 | XMS_ITS | Clinical Summary ---
Author Organization [facility] Address [address] [place] [address] Care Team Providers Care Bookmobile Driver Name Role Phone Kali Quick MD Primary Care Provider + [phone] Allergies Active Allergy Reactions Criticality Noted Date [...] ANNUAL PHYSICAL 07/27/2017 HEPATITIS C SCREENING 07/27/2017 INFLUENZA VACCINE 06/02/2025 Pneumococcal Vaccine 0-49 Aged Out No longer eligible based on patient's age to complete this topic Insurance [facility] [address] [facility] Care Teams Bookmobile Driver Relationship Specialty Start Date End Date Kali Quick MD [facility] [address] [id number] PCP - General Adolescent Medicine 07/24/17
--- NOTE | 2025-08-01 07:48 | XR_ITS ---
FINAL REPORT CLINICAL HISTORY: Right foot fracture follow up pain x 4 weeks COMPARISON: 06/10/2024 FINDINGS: RIGHT FOOT Three views were obtained. The known fracture of the lateral cuneiform is not visualized. The bones are well-mineralized. IMPRESSION: No acute process. Reviewed, Interpreted and Dictated by Krish Smallwood MD Transcribed by Ramonita Minaya Authenticated and [facility]
== END 2025-08-01 23:59 | disposition home or self-care (01) ==
LOC: RAD 07:46
PROVIDERS: PCP Nurse Practitioner Family; Visit Provider Physician Assistant
DX: S92.901D Unspecified fracture of right foot, subsequent encounter for fracture with routine healing (principal); X58.XXXD Exposure to other specified factors, subsequent encounter
CPT/HCPCS: 73630

== ENCOUNTER 2025-08-29 07:50 | Outpatient (CLI) | payer BC, OTHER, SELFPAY ==
--- OUTSIDE RECORDS SUMMARY | 2025-08-08 07:01 | XMS_ITS | Continuity of Care Document ---
Author Organization [facility] Phone Care Team Providers Care Driller Helper Name Role Phone ALBERTO RAYMUNDO Primary Care DOMI TELLEZ Unavailable DOMI TELLEZ Primary Attending DOMI TELLEZ Admitting RESULTS Patient: ARELY COSTA Date of : 1985 7 LABORATORY RESULTS Information is not available LABORATORY NARRATIVE RESULTS Information is not available RADIOLOGY RESULTS ORDER 100: MRI EXTREM LWR NO N-JT RT WO (LOINC: 12629-1) ORDER DATE: August 02, 2025 5:38:00 PM [facility] PERFORMING LAB: [address] [id number] Final Result Date: August 7:56:[address] [place] [address] Name: JULISSA MCGEE Exam Date: 08/02/2025 : 1985 Age 40 years Gender: M Physician: DOMI TELLEZ Facility: PSYCHIATRIC Facility HSV: Outpatient Exam: MRI EXTREM LWR NON-JT RT WO MRI right foot noncontrast HISTORY: Injury COMPARISON: None available FINDINGS: There is mild edema in the anterior aspect of the calcaneus suggesting contusion. There is diffuse edema in the third cuneiform consistent with contusion and there is subcortical fracture noted on the medial inferior lateral aspect aspect. There is small amount of surrounding edema in the soft tissues. A minimal edema in the adjacent second cuneiform more medial without definitive fracture line. There is no drainable abscess or hematoma or seroma. Plantar fascia appears intact. Achilles tendon appears intact. Flexor and extensor tendons appear intact including tibialis anterior posterior tendons, flexor extensor hallucis longus tendons, flexor extensor digitorum longus tendons and peroneus longus and brevis tendons. Achilles tendon is intact. The ligaments of the foot are intact. The sinus Tarsi and tarsal tunnel structures are intact. There is no dislocation. IMPRESSION: Contusion of the anterior calcaneus and third cuneiform with subcortical plantar surface fracture of the third cuneiform. Electronically signed by: Thony Cisneros MD 08/03/2025 11:48 AM EDT Dictated By: THONY CISNEROS Transcribed By: Transcribed On: 08/02/2025 3:56 PM Electronically signed by: THONY CISNEROS 08/02/2025 Thank you for referring JULISSA MCGEE to [facility]. 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 COMPARISON: None. FINDINGS: 4 views of the orbits were obtained and reviewed. No acute bony fracture is identified. Radiopaque dental amalgam within the maxillary and mandibular teeth noted. No unexpected retained radiopaque soft tissue foreign body is identified. IMPRESSION: No unexpected retained radiopaque foreign body on orbital radiographs. Electronically signed by: Dominga Ogden MD 08/02/2025 02:59 PM EDT Dictated By: Dominga Ogden Transcribed By: Transcribed On: 08/02/2025 1:55 PM Electronically signed by: Dominga Ogden 08/02/2025 Thank you for referring JULISSA MCGEE to [facility]. Legally authenticated by GLADIS KEN MD 2025-08-02 13:55:14 PATHOLOGY NARRATIVE RESULTS Information is not available MICROBIOLOGY RESULTS No Micro Labs/Results Exist for Patient BLOOD ADMIN RESULTS Information is not available MEDICATIONS HOME MEDICATIONS Status RXNORM NDC Medication Dose Route Frequency Dates Comments Reported By Updated By Drug Treatment Unknown DISCHARGE MEDICATIONS Status RXNORM NDC Medication Dose Route Frequency Dates Dis pense Data Comments Physician Updated By No Discharge Medication Info rmation Available INPATIENT MEDICATIONS Status RXNORM NDC Medication Dose Route Frequency Rat e Quantity Dates Indication Dispense Data Comments Physician Updated By No Inpatient Medication Info rmation Available SOCIAL HISTORY SOCIAL HISTORY - Smoking Status SNOMED-CT Social History Element Description Effective Dates Offered Cessation Comment Updated By [id number] Smoking Status Unknown If Ever Smoked SOCIAL HISTORY - Gender Sex: Male SOCIAL HISTORY - Status : status i nformation is not available Intention in Next Year: intention information is not available SOCIAL HISTORY - Assessments Code System Description Status Date Value of Assessment Updated By Comment Assessment Information is no t available SOCIAL HISTORY - [place] Affiliation [place] information is not av ailable SOCIAL HISTORY - Legal Sex Legal Sex information is not available SOCIAL HISTORY - Sexual Behavior Sexual Orientation Gender Identity SNOMED-CT Description SNO MED -CT Description Activity Level No of Partners Partner Type UpdatedBy Information is not available SOCIAL HISTORY - Occupation Occupation information is no t available HEALTH CONCERNS Problems Concern Status Health Concern problem infor mation not available. Smoking Status Status Years Used Consumed packs p er day Health Concern smoking histo ry information not available. Family History Concern Status Health Concern family histor y information not available. ENCOUNTERS ENCOUNTER INFORMATION Reason for Visit S92.901A Admission August 02, 2025 5:30:00 PM [facility] [address] [id number] Discharge August 02, 2025 5:30:00 PM [place] [facility] ISCHARGED TO HOME OR SELF CARE ENCOUNTER DIAGNOSES Notes information is not arianna ilable. Code System Diagnosis Onset Date Diagnosis information is not available. ABSTRACT DIAGNOSES Code System Diagnosis Updated By Abatement Date ICD10 UNSPECIFIED FRAC TURE OF RIGHT FOOT, INITIAL ENCOUNTER FOR CLOSED FRACTURE [id number] on August 04, 2025 9:07:18 AM [place] H57.9 ICD10 UNSPECIFIED DISO RDER OF EYE AND ADNEXA [id number] on August 04, 2025 9:07:18 AM [place] S92.901A ICD10 UNSPECIFIED FRAC TURE OF RIGHT FOOT, INITIAL ENCOUNTER FOR CLOSED FRACTURE [id number] on August 04, 2025 9:07:18 AM [place] S90.31XA ICD10 CONTUSION OF RIG HT FOOT, INITIAL ENCOUNTER [id number] on August 04, 2025 9:07:18 AM [place] H57.9 ICD10 UNSPECIFIED DISO RDER OF EYE AND ADNEXA [id number] on August 04, 2025 9:07:18 AM [facility] CARE TEAM Care Driller Helper Role ALBERTO RAYMUNDO Primary Care DOMI TELLEZ Referring DOMI TELLEZ Primary Attending DOMI TELLEZ Admitting CARE TEAM CARE follow up clerk Role on Team Location Telecom Status Start Date End Stephane e Updated By ZACKARY DOMINGUEZ MD PCP normal August 02, 2025 4:00:00 AM [facility] August 02, 2025 5:30:00 PM [facility] [id number] on August 02, 2025 5:33:04 PM [facility] ROSALINDA DURON Referring normal August 01, 2025 7:14:19 PM [facility] August 02, 2025 5:30:00 PM [facility] [id number] on August 02, 2025 5:33:04 PM [facility] ROSALINDA DURON Attending normal August 01, 2025 7:14:19 PM [facility] August 02, 2025 5:30:00 PM [facility] [id number] on August 02, 2025 5:33:04 PM [facility] ROSALINDA DURON Admitting normal August 01, 2025 7:14:19 PM [facility] August 02, 2025 5:30:00 PM [facility] [id number] on August 02, 2025 5:33:04 PM [facility]
--- OUTSIDE RECORDS SUMMARY | 2025-08-29 07:53 | XMS_ITS | Clinical Summary ---
Author Organization [facility] Address [address] [place] [address] Care Team Providers Care Munitions Handler Supervisor Name Role Phone Kali Quick MD Primary Care Provider + [phone] Allergies Active Allergy Reactions Criticality Noted Date [...] 08/02 Potentially Unsafe Housing Conditions Not on larueen e 08/12/2023 Family and Community Support Answer [...] patient's age to complete this topic Insurance [facility] [address] - [facility] Care Teams Munitions Handler Supervisor Relationship Specialty Start Date End Date Kali Quick MD [facility] [address] [address] PCP - General Adolescent Medicine 07/24/17
--- NOTE | 2025-08-29 08:14 | XR_ITS ---
FINAL REPORT CLINICAL HISTORY: right foot pain injury x 2 months ago FINDINGS: RIGHT FOOT 3 views of the right foot were obtained. There is no acute fracture or dislocation. Visualized joint spaces are normally aligned. Soft tissues are unremarkable. IMPRESSION: No acute bony abnormality. Reviewed, Interpreted and Dictated by Krish Smallwood MD Transcribed by Argenis Mi Authenticated and [facility]
== END 2025-08-29 23:59 | disposition home or self-care (01) ==
LOC: RAD 07:52
PROVIDERS: PCP Nurse Practitioner Family; Visit Provider Physician Assistant
DX: S92.901A Unspecified fracture of right foot, initial encounter for closed fracture (principal)
CPT/HCPCS: 73630

== ENCOUNTER 2025-09-15 08:00 | Outpatient (CLI) | payer BC, OTHER, SELFPAY ==
--- NOTE | 2025-09-15 08:00 | CT_ITS ---
FINAL REPORT TECHNIQUE: Thin section axial CT images with coronal and sagittal reformats were performed of the right foot. This study was performed with techniques to keep radiation doses as low as reasonably achievable (ALARA). Individualized dose reduction techniques using automated exposure control or adjustment of mA and/or kV according to the patient''s size were employed. CLINICAL HISTORY: Right foot fx - happened Labor Day weekend, still in pain COMPARISON: 07/01/2025 FINDINGS: There has been interval healing of lateral cuneiform fracture. No significant deformity is seen. There is no evidence of AVN. No new fracture is identified. Joints are intact. There are no masses or fluid collections. There are no soft tissue abnormalities. IMPRESSION: Interval healing of the lateral cuneiform fracture. Reviewed, Interpreted and Dictated by Estee Lin MD Transcribed by Argenis Mi Authenticated and . [facility]
== END 2025-09-15 23:59 | disposition home or self-care (01) ==
LOC: RAD 08:01
PROVIDERS: PCP Nurse Practitioner Family; Visit Provider Physician Assistant
DX: S92.221 Displaced fracture of lateral cuneiform of right foot (principal)
CPT/HCPCS: 73700